=== PATIENT | male | born 2000 | race Caucasian/White ===

== ENCOUNTER 2022-03-27 20:35 | Emergency (ER) | payer MEDICARE, OTHER ==
[~2022-03-27] VITALS: Ht 175.3 cm; Wt 116.1 kg
== END 2022-03-28 00:45 | disposition left against medical advice (07) ==
LOC: ER 20:35
DX: L76.22 Postprocedural hemorrhage of skin and subcutaneous tissue following other procedure (principal); Y83.9 Surgical procedure, unspecified as the cause of abnormal reaction of the patient, or of later complication, without mention of misadventure at the time of the procedure; Z53.21 Procedure and treatment not carried out due to patient leaving prior to being seen by health care provider
CPT/HCPCS: 99281

== ENCOUNTER 2022-09-07 14:28 | Emergency (ER) | payer MEDICARE, OTHER ==
[~2022-09-07] VITALS: Ht 172.7 cm; Wt 108.9 kg
[2022-09-07 15:01] LABS: Source, Urine Clean Catch
[2022-09-07 15:10] LABS: Appearance, Urine Clear (Clear); Bilirubin, Urine Neg (Neg); Blood, Urine Neg (Neg); Color, Urine Yellow (P-Yellow); Glucose Qualitative, Urine Neg (Neg); Ketones, Urine Neg (Neg); Leukocyte Esterase, Urine 1+ (Neg); Nitrite, Urine Neg (Neg); Protein, Urine Neg (Neg); Specific Gravity, Urine 1.015 (1.003-1.022); Urobilinogen, Urine NORM (Normal); pH, Urine 6.5 (5.0-8.0)
[2022-09-07] MEDS ORDERED: LATUDA80 MG PO (15:18)
[2022-09-07] MEDS ORDERED: OXCARBAZEPINE PO (15:19)
[2022-09-07] MEDS ORDERED: BUSP5 (15:19)
[2022-09-07 15:33] LABS: Bacteria Mod /hpf; Red Blood Cells, Urine 0-2 /hpf (0-2); Squamous Epithelial Cells Few /hpf (Few)
[2022-09-07] MEDS ORDERED: CEFD300 PO (15:56)
== END 2022-09-07 16:02 | disposition home or self-care (01) ==
LOC: ER 14:28
PROVIDERS: Physician Assistant
DX: N39.0 Urinary tract infection, site not specified (principal); D72.829 Elevated white blood cell count, unspecified; Z88.8 Allergy status to other drugs, medicaments and biological substances; Z91.013 Allergy to seafood; Z79.899 Other long term (current) drug therapy
CPT/HCPCS: 81001; 87086; A9270

== ENCOUNTER 2022-09-12 08:53 | Emergency (ER) | payer MEDICARE, OTHER ==
[~2022-09-12] VITALS: Ht 175.3 cm; Wt 117.9 kg
[~2022-09-12 08:53] MED LIST: BUSP5; CEFD300 PO; LATUDA80 MG PO; OXCARBAZEPINE PO
[2022-09-12 09:55] LABS: Source, Urine Clean Catch
[2022-09-12 10:08] LABS: Appearance, Urine Clear (Clear); Bilirubin, Urine Neg (Neg); Blood, Urine Neg (Neg); Color, Urine Yellow (P-Yellow); Glucose Qualitative, Urine Neg (Neg); Ketones, Urine Neg (Neg); Leukocyte Esterase, Urine 1+ (Neg); Nitrite, Urine Neg (Neg); Protein, Urine 1+ (Neg); Specific Gravity, Urine 1.015 (1.003-1.022); Urobilinogen, Urine NORM (Normal)
[2022-09-12] MEDS ORDERED: Pyridium200 MG PO (10:24)
[2022-09-12 10:39] LABS: Bacteria Rare /hpf; Red Blood Cells, Urine 0-2 /hpf (0-2); Squamous Epithelial Cells Rare /hpf (Few); White Blood Cells, Urine 0-2 /hpf (0-5)
== END 2022-09-12 11:06 | disposition home or self-care (01) ==
LOC: ER 08:53
PROVIDERS: Physician Assistant
DX: R30.0 Dysuria (principal); Z88.8 Allergy status to other drugs, medicaments and biological substances; Z91.013 Allergy to seafood; Z79.899 Other long term (current) drug therapy
CPT/HCPCS: 81001

== ENCOUNTER 2022-10-15 14:27 | Emergency (ER) | payer MEDICARE, OTHER ==
[~2022-10-15] VITALS: Ht 175.3 cm; Wt 117.9 kg
[~2022-10-15 14:27] MED LIST changes: +Pyridium200 MG PO
== END 2022-10-15 16:06 | disposition home or self-care (01) ==
LOC: ER 14:27
DX: G56.01 Carpal tunnel syndrome, right upper limb (principal); Z88.8 Allergy status to other drugs, medicaments and biological substances; Z91.013 Allergy to seafood; Z79.899 Other long term (current) drug therapy
CPT/HCPCS: 29125; 99282-25

== ENCOUNTER → 2023-01-18 | Outpatient (CLI) | payer MEDICARE, OTHER | END | disposition home or self-care (01) | LOC: LAB SHORT 18:03 → LAB 18:03 | DX: L03.019 Cellulitis of unspecified finger (principal) | CPT/HCPCS: 87070; 87077; 87147; 87186; 87205 ==

== ENCOUNTER 2023-04-16 07:58 | Day surgery (SDC) | payer MEDICARE, OTHER ==
[~2023-04-16] VITALS: Ht 175.3 cm; Wt 124.8 kg
[2023-04-16] MEDS ORDERED: TRAZODONE HYDROCHLOR (08:20)
[2023-04-16] MEDS ORDERED: LURASIDONE HCL120 MG PO (08:20)
[2023-04-16] MEDS ORDERED: BUSPIRONE HCL7.5 M6 PO (08:20)
[2023-04-16] MEDS ORDERED: METFORMIN HCL500 M2 PO (08:20)
[2023-04-16] MEDS ORDERED: OXCARBAZEPINE600 M1 PO (08:21)
--- NOTE | 2023-04-16 09:14 | NUR ---
04/16/23 0914 Faye Ortiz PT ON 2L O2 VIA NC, CALL LIGHT WITHIN REACH, PATIENT'S SUPPORT PERSON AT BEDSIDE. RN MONITORING PATIENT, CURTAIN TO ROOM OPEN. PATIENT CALM AND RELAXED IN BED, INSTRUCTED TO USE CALL LIGHT
[2023-04-16 10:41] VITALS: BP 102/66
== END 2023-04-16 10:52 | disposition home or self-care (01) ==
LOC: ORSCSDS 07:58
PROVIDERS: Orthopaedic Surgery
PROC: 01N50ZZ Release Median Nerve, Open Approach (ICD-10-PCS; principal; 2023-04-16 09:15)
DX: G56.01 Carpal tunnel syndrome, right upper limb (principal); E66.01 Morbid (severe) obesity due to excess calories; Z68.41 Body mass index [BMI] 40.0-44.9, adult; I48.91 Unspecified atrial fibrillation; F20.9 Schizophrenia, unspecified; Z79.899 Other long term (current) drug therapy; F84.0 Autistic disorder; F43.10 Post-traumatic stress disorder, unspecified
CPT/HCPCS: A9270; J0690; J2250; J2704; J3010; J7120

== ENCOUNTER 2023-04-23 20:16 | Emergency (ER) | payer MEDICARE, OTHER ==
[~2023-04-23] VITALS: Ht 175.3 cm; Wt 124.7 kg
[~2023-04-23 20:16] MED LIST changes: +BUSPIRONE HCL7.5 M6 PO; +LURASIDONE HCL120 MG PO; +METFORMIN HCL500 M2 PO; +OXCARBAZEPINE600 M1 PO; +TRAZODONE HYDROCHLOR
[2023-04-23 20:22] VITALS: BP 139/98
[2023-04-23] MEDS ORDERED: TRAZ100 PO (23:32)
[2023-04-24] MEDS ORDERED: ONDA4ODT MM (00:39)
== END 2023-04-24 01:10 | disposition home or self-care (01) ==
LOC: ER 20:16
DX: R11.2 Nausea with vomiting, unspecified (principal); R44.1 Visual hallucinations; G47.00 Insomnia, unspecified; F31.9 Bipolar disorder, unspecified; Z88.8 Allergy status to other drugs, medicaments and biological substances; Z91.013 Allergy to seafood; Z79.899 Other long term (current) drug therapy; Z79.84 Long term (current) use of oral hypoglycemic drugs
CPT/HCPCS: 99284; A9270

== ENCOUNTER 2023-07-13 15:24 | Emergency (ER) | payer OTHER, MEDICARE ==
[~2023-07-13] VITALS: Ht 175.3 cm; Wt 129.3 kg
[~2023-07-13 15:24] MED LIST changes: +ONDA4ODT MM; +TRAZ100 PO
[2023-07-13 16:00] VITALS: BP 162/72
== END 2023-07-13 16:29 | disposition home or self-care (01) ==
LOC: ER 15:24
DX: S09.90XA Unspecified injury of head, initial encounter (principal); W01.10XA Fall on same level from slipping, tripping and stumbling with subsequent striking against unspecified object, initial encounter; Z91.013 Allergy to seafood; Z79.899 Other long term (current) drug therapy; Z79.84 Long term (current) use of oral hypoglycemic drugs; F43.10 Post-traumatic stress disorder, unspecified
CPT/HCPCS: 99283; A9270

== ENCOUNTER 2023-07-14 20:06 | Emergency (ER) | payer MEDICARE, OTHER ==
[~2023-07-14] VITALS: Ht 175.3 cm; Wt 127.0 kg
[2023-07-14 20:11] VITALS: BP 130/77
== END 2023-07-14 21:50 | disposition home or self-care (01) ==
LOC: ER 20:06
DX: S16.1XXA Strain of muscle, fascia and tendon at neck level, initial encounter (principal); F31.9 Bipolar disorder, unspecified; F84.0 Autistic disorder; F43.10 Post-traumatic stress disorder, unspecified; W19.XXXA Unspecified fall, initial encounter; Z79.899 Other long term (current) drug therapy; Z79.84 Long term (current) use of oral hypoglycemic drugs
CPT/HCPCS: 99283; A9270

== ENCOUNTER 2024-06-18 13:27 | Emergency (ER) | payer MEDICARE, OTHER ==
[~2024-06-18] VITALS: Ht 175.3 cm; Wt 127.0 kg
[2024-06-18 13:34] VITALS: BP 148/95
== END 2024-06-18 15:40 | disposition home or self-care (01) ==
LOC: ER 13:27
DX: L03.011 Cellulitis of right finger (principal); F43.10 Post-traumatic stress disorder, unspecified; Z79.899 Other long term (current) drug therapy; Z91.013 Allergy to seafood
CPT/HCPCS: 10060; 99282-25

== ENCOUNTER 2025-07-18 20:45 | Emergency (ER) | payer MEDICARE, OTHER ==
[~2025-07-18] VITALS: Ht 175.3 cm; Wt 108.9 kg
[2025-07-18 22:00] VITALS: BP 152/93
== END 2025-07-18 22:10 | disposition home or self-care (01) ==
LOC: ER 20:45
DX: S01.511A Laceration without foreign body of lip, initial encounter (principal); S60.221A Contusion of right hand, initial encounter; S50.311A Abrasion of right elbow, initial encounter; Z79.84 Long term (current) use of oral hypoglycemic drugs; Z79.899 Other long term (current) drug therapy; Y04.2XXA Assault by strike against or bumped into by another person, initial encounter
CPT/HCPCS: 73130; 99284-25; A9270